=== PATIENT | female | born 1950 | race Hispanic/Latino ===

== ENCOUNTER 2021-09-28 17:13 | Emergency (ER) | payer OTHER ==
[~2021-09-28] VITALS: Ht 157.5 cm; Wt 72.1 kg
[2021-09-28 17:16] VITALS: BP 113/44
[2021-09-28] MEDS ORDERED: ACETAMINOPHEN 500 MG TABLET PO ONE (17:30)
[2021-09-28] MEDS ORDERED: ACETAMINOPHEN 500 MG TABLET ONE (18:39)
[2021-09-28 18:57] LABS: APPEARANCE,URINE Clear (CLEAR); BILIRUBIN,URINE Negative (NEGATIVE); COLOR,URINE Yellow (YELLOW); GLUCOSE, URINE (UA) Negative (NEGATIVE); KETONES,URINE Negative (NEGATIVE); LEUKOCYTE ESTERASE ,URINE Negative (NEGATIVE); NITRATE,URINE Negative (NEGATIVE); OCCULT BLOOD,URINE Negative (NEGATIVE); PH,URINE 6.5 (5.0-8.0); PROTEIN,URINE Negative (NEGATIVE); UROBILINOGEN,URINE 0.2 mg/dL (0.2-1.0)
== END 2021-09-28 20:49 | disposition home or self-care (01) ==
LOC: EDH 17:13
DX: J11.1 Influenza due to unidentified influenza virus with other respiratory manifestations (principal); R51.9 Headache, unspecified; M79.10 Myalgia, unspecified site; R09.89 Other specified symptoms and signs involving the circulatory and respiratory systems; Z20.822 Contact with and (suspected) exposure to COVID-19
CPT/HCPCS: 81003; 87635; 87804 ×2; 99283; C9803

== ENCOUNTER 2022-11-27 14:27 | Emergency (ER) | payer MEDICAID, OTHER ==
[~2022-11-27] VITALS: Ht 167.6 cm; Wt 54.4 kg
[2022-11-27] MEDS ORDERED: CYCL10TA16 PO (17:51)
[2022-11-27 18:18] VITALS: BP 116/70
== END 2022-11-27 18:25 | disposition home or self-care (01) ==
LOC: EDH 14:27
DX: S46.811A Strain of other muscles, fascia and tendons at shoulder and upper arm level, right arm, initial encounter (principal); S66.319A Strain of extensor muscle, fascia and tendon of unspecified finger at wrist and hand level, initial encounter; Z90.49 Acquired absence of other specified parts of digestive tract; Z98.890 Other specified postprocedural states; W10.8XXA Fall (on) (from) other stairs and steps, initial encounter; Y93.01 Activity, walking, marching and hiking; Y92.89 Other specified places as the place of occurrence of the external cause; Y99.8 Other external cause status
CPT/HCPCS: 29105; 73030; 73100; 73120